=== PATIENT | female | born 1995 | race Caucasian/White ===

== ENCOUNTER 2018-04-12 10:32 | Emergency (ER) | payer MEDICAID, SELFPAY ==
[2018-04-12 10:33] VITALS: BP 136/71; PULSE 80; RESP 18; TEMP 36.6; O2SAT 98; BMI 18.0
--- NOTE | 2018-04-12 10:50 | ED.VISSUMM ---
- ER Visit Summary Date of Service: 04/12/18 Chief Complaint: Back pain History of Present Illness: The patient is a 22 F who presents with thoracic back pain, unknown injury. No radiation. It is worse with movement and twisting. No bowel or bladder compromise. No neuropathy. Physical Examination: Otherwise unremarkable exam she has quite a bit of trapezius and paraspinal muscle spasm on the left. Neurologically intact. Emergency Department Course and Treatment: Patient will be treated with muscle relaxants and analgesia. Disposition: [Discharge stable condition] Impression: [Thoracic strain] This note was generated with [employer] dictation software. It may contain incorrect words, spelling, and punctuation that were not noted in review of the chart prior to signing ED Disposition - Plan for ED Patient: Disposition: Home or Assisted Living Chief Complaint: Back Instructions: ED Sprain Thoracic Spine Prescriptions: Naproxen [Naprosyn] 500 mg PO BID PRN #20 tab Diazepam [Valium] 5 mg PO TID 5 Days #8 tab Referrals: [facility] Doctor,Out of [NON-STAFF] - 2 Days
--- NOTE | 2018-04-12 10:55 | ED.DCSUM_ITS ---
- ER Visit Summary Date of Service: 04/12/18 Chief Complaint: Back pain History of Present Illness: The patient is a 22 F who presents with thoracic back pain, unknown injury. No radiation. It is worse with movement and twisting. No bowel or bladder compromise. No neuropathy. Physical Examination: Otherwise unremarkable exam she has quite a bit of trapezius and paraspinal muscle spasm on the left. Neurologically intact. Emergency Department Course and Treatment: Patient will be treated with muscle relaxants and analgesia. Disposition: [Discharge stable condition] Impression: [Thoracic strain] This note was generated with [employer] dictation software. It may contain incorrect words, spelling, and punctuation that were not noted in review of the chart prior to signing ED Disposition - Plan for ED Patient: Disposition: Home or Assisted Living Chief Complaint: Back Instructions: ED Sprain Thoracic Spine Prescriptions: Naproxen [Naprosyn] 500 mg PO BID PRN #20 tab Diazepam [Valium] 5 mg PO TID 5 Days #8 tab Referrals: [facility] Doctor,Out of [NON-STAFF] - 2 Days
[2018-04-12] MEDS: diazePAM 5 MG Tablet PO (11:16)
[2018-04-12] MEDS: Ketorolac 30 MG/ML Syringe IM (11:16)
== END 2018-04-12 11:24 | disposition home or self-care (01) ==
PROVIDERS: Emergency Provider Emergency Medicine
DX: S29.012A Strain of muscle and tendon of back wall of thorax, initial encounter (principal); M62.830 Muscle spasm of back; X58.XXXA Exposure to other specified factors, initial encounter; Y93.9 Activity, unspecified; Y92.9 Unspecified place or not applicable; Y99.9 Unspecified external cause status; Z72.0 Tobacco use
CPT/HCPCS: 96372; 99283